=== PATIENT | male | born 1955 ===

== ENCOUNTER 2019-11-15 19:31 | Emergency (ER) | payer BC ==
[2019-11-15] MEDS ORDERED: Aspirin 325 MG Tab PO ONE (19:42)
--- NOTE | 2019-11-15 19:46 | EDM.PDOC ---
ED HPI GENERAL MEDICAL PROBLEM - General Chief Complaint: Chest Pain Stated Complaint: CHEST PAIN Time Seen by Provider: 11/15/19 19:43 Source of Information: Reports: Patient History Limitations: Reports: No Limitations - History of Present Illness INITIAL COMMENTS - FREE TEXT/NARRATIVE: Is a 64-year-old male with a prior history of coronary artery disease status post several stents, diabetes, obesity. Patient presents with a chief complaint of chest pressure. Chest pressure started around 4 PM today. Patient initially thought it was gas and did not think much of it. Patient had associated symptoms of nausea and diaphoresis. Patient states the pain is continued and that it feels similar to when he had prior NH 12 years ago. The pain radiates to the left shoulder. Patient not taking anything for the symptoms. Patient reports continuing to be an every day smoker. Pmhx: Per HPI Pshx: None Family Hx: noncontributory Smoking history? Yes Etoh use? none Drug use? none In addition to that documented in the HPI above, the additional ROS was obtained : Constitutional: Denies fevers or chills Eyes: Denies vision changes ENMT: Denies sore throat CV: Per HPI Resp: Denies SOB GI: Denies vomiting or diarrhea : Denies painful urination MSK: Denies recent trauma Skin: Denies new rashes Neuro: Denies new numbness or tingling or weakness Endocrine: Denies unexpected weight loss Heme: Denies bleeding disorders I have reviewed the triage vital signs Const: Well nourished, well developed, appears stated age Eyes: PERRL, no conjunctival injection HENT: NCAT, Neck supple without meningismus CV: RRR, Warm, well-perfused extremities RESP: CTAB, Unlabored respiratory effort GI: Obesity limits exam. Soft, non-tender, non-distended, no masses MSK: No gross deformities appreciated Skin: Warm, dry. 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 Sensation and motor function of extremities grossly intact. Psych: Appropriate mood and affect Assessment and plan: Patient is a 64-year-old male with chief complaint of chest pain concerning for acute coronary syndrome. Patient's initial EKG demonstrated sinus rhythm without evidence of ST elevation myocardial infarction. Patient did have poor R wave progression which can be indicative of coronary ischemia. Patient's initial troponin was within normal limits. Patient received aspirin and his pain resolved. Patient had no other laboratory abnormalities. After period of observation, the troponin was repeated and demonstrated elevation to 0.7. His EKG demonstrated T wave inversions in the lateral leads I, aVL. Patient still had no evidence of ST elevation NH. Patient was initiated on a heparin drip. Transferred was delayed as the patient did not want to be admitted and wanted to leave the hospital AGAINST MEDICAL ADVICE. After discussion with family members and careful thought, the patient change his mind and agreed to be transferred to another hospital for cardiology evaluation. At this point, there are no ALS who is available to take the patient. While there is a consideration as later tonight there is estimated to be snowfall which can make traveling much more difficult. Therefore, the patient will be transported via air to [place] and he will undergo cardiology evaluation. Patient is hemodynamically stable and has remained so throughout the emergency department stay. Accepting physician at [place] is Dr. Cruz. Patient will continued to be monitored. left shoulder Pain Score (Numeric/FACES): 2 - Related Data Allergies Allergy/AdvReac Type Severity Reaction Status Date / Time No Known Allergies Allergy Verified 11/04/16 09:41 Home Meds: Home Meds Aspirin 1 tab PO DAILY 06/02/15 [History] Dapagliflozin Propanediol [Farxiga] 1 tab PO DAILY 06/02/15 [History] Fish Oil/[place]-3 Fatty Acids [Fish Oil 1,000 MG] 1 each PO BID 06/02/15 [History ] Ramipril [Altace] 1 cap PO DAILY 06/02/15 [History] atenoloL [Tenormin] 1 tab PO DAILY 06/02/15 [History] atorvaSTATin Calcium [Atorvastatin Calcium] 1 tab PO DAILY 06/02/15 [History] glipiZIDE [Glipizide] 2 tab PO BID 06/02/15 [History] metFORMIN [Glucophage] 500 mg PO BID 06/02/15 [History] Ibuprofen 800 mg PO Q6H #10 tablet 06/03/15 [Rx] Sulfamethoxazole/Trimethoprim [Sulfamethoxazole-Tmp Ds Tablet] 1 each PO Q12H # 5 tablet 06/03/15 [Rx] Trejeo Diabetes Injectable 34 units SUBCUT DAILY 11/04/16 [History] Past Medical History HEENT History: Reports: None Cardiovascular History: Reports: High Cholesterol, Hypertension, Other (See Below) Other Cardiovascular History: stent done 2008 Respiratory History: Reports: None Gastrointestinal History: Reports: None Genitourinary History: Reports: None Musculoskeletal History: Reports: None Neurological History: Reports: None Psychiatric History: Reports: None Endocrine/Metabolic History: Reports: Diabetes, Type II Hematologic History: Reports: None Immunologic History: Reports: None Oncologic (Cancer) History: Reports: None Dermatologic History: Reports: None - Infectious Disease History Infectious Disease History: Reports: None - Past Surgical History HEENT Surgical History: Reports: Naso-Sinus Surgery Cardiovascular Surgical History: Reports: Coronary Artery Stent Social & Family History - Family History Family Medical History: Noncontributory - Caffeine Use Caffeine Use: Reports: Coffee ED ROS GENERAL - Review of Systems Review Of Systems: See Below ED EXAM, GENERAL - Physical Exam Exam: See Below Course - Vital Signs Last Recorded V/S: Last Vital Signs Temp 36.4 C 11/15/19 23:23 Pulse 77 11/15/19 23:23 Resp 20 11/15/19 23:23 BP 164/79 H 11/15/19 23:23 Pulse Ox 93 L 11/15/19 23:23 - Orders/Labs/Meds Orders: Active Orders 24 hr Category Date Time Status EKG 12 Lead [EKG Documentation Completion] [RC] STAT Care 11/15/19 22:30 Active EKG 12 Lead [EKG Documentation Completion] [RC] STAT Care 11/15/19 22:31 Active EKG Documentation Completion [RC] STAT Care 11/15/19 19:47 Active Labs: Laboratory Tests 11/15/19 11/15/19 11/15/19 Range/Units 19:35 19:35 19:35 WBC 11.35 H (4.0-11.0) K/uL RBC 5.58 (4.50-5.90) M/uL Hgb 16.8 (13.0-17.0) g/dL Hct 51.1 H (38.0-50.0) % MCV 91.6 (80.0-98.0) fL MCH 30.1 (27.0-32.0) pg MCHC 32.9 (31.0-37.0) g/dL RDW Std Deviation 46.3 (28.0-62.0) fl RDW Coeff of Patricia 14 (11.0-15.0) % Plt Count 250 (150-400) K/uL MPV 9.20 (7.40-12.00) fL Neut % (Auto) 67.3 (48.0-80.0) % Lymph % (Auto) 20.9 (16.0-40.0) % [place] % (Auto) 8.4 (0.0-15.0) % Eos % (Auto) 3.1 (0.0-7.0) % Baso % (Auto) 0.3 (0.0-1.5) % Neut # (Auto) 7.7 H (1.4-5.7) K/uL Lymph # (Auto) 2.4 (0.6-2.4) K/uL [place] # (Auto) 1.0 H (0.0-0.8) K/uL Eos # (Auto) 0.4 (0.0-0.7) K/uL Baso # (Auto) 0.0 (0.0-0.1) K/uL Nucleated RBC % 0.0 /100WBC Nucleated RBCs # 0 K/uL INR 0.91 Sodium 136 (136-148) mmol/L Potassium 4.5 (3.5-5.1) mmol/L Chloride 99 (98-107) mmol/L Carbon Dioxide 27.7 (21.0-32.0) mmol/L BUN 24 H (7.0-18.0) mg/dL Creatinine 1.2 (0.8-1.3) mg/dL Est Cr Clr Drug Dosing 61.75 mL/min Estimated GFR (MDRD) > 60.0 ml/min Glucose 341 H (74-106) mg/dL Calcium 9.5 (8.5-10.1) mg/dL Total Bilirubin 0.2 (0.2-1.0) mg/dL AST 13 L (15-37) IU/L ALT 22 (14-63) IU/L Alkaline Phosphatase 123 H (46-116) U/L Troponin I < 0.050 (0.000-0.056) ng/mL Total Protein 8.3 H (6.4-8.2) g/dL Albumin 3.6 (3.4-5.0) g/dL Globulin 4.7 H (2.6-4.0) g/dL Albumin/Globulin Ratio 0.8 L (0.9-1.6) 11/15/19 Range/Units 21:43 WBC (4.0-11.0) K/uL RBC (4.50-5.90) M/uL Hgb (13.0-17.0) g/dL Hct (38.0-50.0) % MCV (80.0-98.0) fL MCH (27.0-32.0) pg MCHC (31.0-37.0) g/dL RDW Std Deviation (28.0-62.0) fl RDW Coeff of Patricia (11.0-15.0) % Plt Count (150-400) K/uL MPV (7.40-12.00) fL Neut % (Auto) (48.0-80.0) % Lymph % (Auto) (16.0-40.0) % [place] % (Auto) (0.0-15.0) % Eos % (Auto) (0.0-7.0) % Baso % (Auto) (0.0-1.5) % Neut # (Auto) (1.4-5.7) K/uL Lymph # (Auto) (0.6-2.4) K/uL [place] # (Auto) (0.0-0.8) K/uL Eos # (Auto) (0.0-0.7) K/uL Baso # (Auto) (0.0-0.1) K/uL Nucleated RBC % /100WBC Nucleated RBCs # K/uL INR Sodium (136-148) mmol/L Potassium (3.5-5.1) mmol/L Chloride (98-107) mmol/L Carbon Dioxide (21.0-32.0) mmol/L BUN (7.0-18.0) mg/dL Creatinine (0.8-1.3) mg/dL Est Cr Clr Drug Dosing mL/min Estimated GFR (MDRD) ml/min Glucose (74-106) mg/dL Calcium (8.5-10.1) mg/dL Total Bilirubin (0.2-1.0) mg/dL AST (15-37) IU/L ALT (14-63) IU/L Alkaline Phosphatase (46-116) U/L Troponin I 0.696 H* (0.000-0.056) ng/mL Total Protein (6.4-8.2) g/dL Albumin (3.4-5.0) g/dL Globulin (2.6-4.0) g/dL Albumin/Globulin Ratio (0.9-1.6) Meds: Medications Discontinued Medications Generic Name Dose Route Start Last Admin Trade Name Freq PRN Reason Stop Dose Admin Aspirin 325 mg 11/15/19 19:42 11/15/19 20:18 Aspirin PO 11/15/19 19:43 325 mg ONETIME ONE Administration Heparin Sodium (Porcine) 4,000 units 11/15/19 23:08 11/15/19 23:10 Heparin Sodium IVPUSH 11/15/19 23:09 4,000 units ONETIME ONE Administration Protocol Heparin Sodium (Porcine) Confirm 11/15/19 23:07 11/15/19 23:10 Heparin Sodium Administered 11/15/19 23:08 Not Given Dose 5,000 units .ROUTE .STK-MED ONE Heparin Sodium/Sodium Chloride 25,000 unit in 500 mls @ 37.013 mls/hr 23:00 11/15/19 23:04 Heparin-1/2ns 25,000 Units/500 IV 12 units/kg/hr TITRATE JOSÉ MIGUEL 37.013 mls/hr Administration Protocol 12 UNITS/KG/HR Ondansetron HCl 4 mg 11/15/19 23:20 11/15/19 23:23 Zofran IVPUSH 11/15/19 23:21 4 mg ONETIME ONE Administration Departure - Departure Time of Disposition: 23:34 Disposition: DC/Tfer to Acute Hospital 02 Reason for Transfer *Q: Other Clinical Impression: NSTEMI (non-ST elevated myocardial infarction) Referrals: Valentino Lizama MD [Primary Care Provider] - Forms: ED Department Discharge Sepsis Event Note - Evaluation Sepsis Screening Result: No Definite Risk - Focused Exam Vital Signs: Vital Signs Temp Pulse Resp BP Pulse Ox 11/15/19 23:23 36.4 C 77 20 164/79 H 93 L 11/15/19 22:50 78 16 116/54 L 93 L 11/15/19 21:45 73 16 126/61 93 L 11/15/19 19:39 35.9 C L 77 20 137/45 L 95 Date Exam was Performed: 11/15/19 Time Exam was Performed: 23:31 - My Orders Last 24 Hours: My Active Orders 11/15/19 19:47 EKG Documentation Completion [RC] STAT 11/15/19 22:30 EKG 12 Lead [EKG Documentation Completion] [RC] STAT 11/15/19 22:31 EKG 12 Lead [EKG Documentation Completion] [RC] STAT - Assessment/Plan Last 24 Hours: My Active Orders 11/15/19 19:47 EKG Documentation Completion [RC] STAT 11/15/19 22:30 EKG 12 Lead [EKG Documentation Completion] [RC] STAT 11/15/19 22:31 EKG 12 Lead [EKG Documentation Completion] [RC] STAT
--- NOTE | 2019-11-15 20:06 | CR ---
Chest: Semi-upright view of the chest was obtained utilizing portable technique. Comparison: Prior chest x-ray of 06/02/18. Heart size and mediastinum are normal. Lungs are clear with no acute parenchymal change. Bony structures are grossly intact. Impression: 1. Nothing acute is seen on portable chest x-ray. Diagnostic code #1 This report was dictated in [place] Standard Time
[2019-11-15 20:10] LABS: BLOOD UREA NITROGEN,BUN 24 mg/dL (7.0-18.0); CARBON DIOXIDE,CO2 27.7 mmol/L (21.0-32.0); CHLORIDE,CL 99 mmol/L (98-107); GLUCOSE RANDOM 341 mg/dL (74-106); POTASSIUM,K 4.5 mmol/L (3.5-5.1); SODIUM,NA 136 mmol/L (136-148)
[2019-11-15] MEDS ORDERED: Heparin Sod,Pork In 0.45% Nacl 25,000 UNIT/500 ML IV.SOLN IV SCH (23:00)
[2019-11-15] MEDS ORDERED: Heparin Sodium 5,000 Units/ML Vial ONE (23:07)
[2019-11-15] MEDS ORDERED: Heparin Sodium 5,000 Units/ML Vial IVPUSH ONE (23:08)
[2019-11-15] MEDS ORDERED: Ondansetron 4 MG/2 ML SDV IVPUSH ONE (23:20)
[2019-11-15 23:25] VITALS: BP 164/79; PULSE 77
== END 2019-11-16 00:05 ==
LOC: MW.ED 19:31
DX: I21.4 Non-ST elevation (NSTEMI) myocardial infarction (principal); I10 Essential (primary) hypertension; E11.9 Type 2 diabetes mellitus without complications; Z79.82 Long term (current) use of aspirin; Z79.899 Other long term (current) drug therapy
CPT/HCPCS: 36415; 71045; 80053; 84484; 85025; 85610; 93005; 96365; 96375; 99285; A9270; J1644; J2405

== ENCOUNTER 2022-01-08 10:55 | Emergency (ER) | payer BC ==
[2022-01-08] MEDS ORDERED: Sodium Chloride 0.9% 10 ML Syringe FLUSH PRN (11:08)
[2022-01-08] MEDS ORDERED: Sodium Chloride 0.9% 2.5 ML Syringe FLUSH PRN (11:08)
[2022-01-08] MEDS ORDERED: Diltiazem 25 MG/5 ML SDV IVPUSH ONE (11:10)
[2022-01-08] MEDS ORDERED: Diltiazem 100 MG in Sodium Chloride 0.9% 100 ML IV SCH (11:15)
[2022-01-08 11:49] LABS: BLOOD UREA NITROGEN,BUN 15 mg/dL (7.0-18.0); CARBON DIOXIDE,CO2 25.5 mmol/L (21.0-32.0); CHLORIDE,CL 97 mmol/L (98-107); GLUCOSE RANDOM 264 mg/dL (74-106); POTASSIUM,K 4.1 mmol/L (3.5-5.1); SODIUM,NA 133 mmol/L (136-148)
[2022-01-08 13:57] VITALS: BP 131/81; PULSE 111
== END 2022-01-08 13:21 ==
LOC: MW.ED 10:55
DX: I21.4 Non-ST elevation (NSTEMI) myocardial infarction (principal); I48.91 Unspecified atrial fibrillation; I10 Essential (primary) hypertension; E11.9 Type 2 diabetes mellitus without complications; Z79.899 Other long term (current) drug therapy; Z79.82 Long term (current) use of aspirin; Z79.84 Long term (current) use of oral hypoglycemic drugs; Z79.4 Long term (current) use of insulin; Z20.822 Contact with and (suspected) exposure to COVID-19
CPT/HCPCS: 36415; 71045; 80053; 83735; 83880; 84484; 85025; 87635; 93005; 96365; 96366; 96376; 99285; J3490; U0002

== ENCOUNTER 2023-12-12 16:44 | Emergency (ER) | payer BC ==
[2023-12-12 17:27] LABS: BASOPHILS ABSOLUTE AUTO 0.04 K/uL (0.00-0.20); BASOPHILS PERCENT AUTO 0.4 % (0.0-1.0); EOSINOPHILS ABSOLUTE AUTO 0.23 K/uL (0.00-0.45); HEMATOCRIT 41.5 % (42.0-52.0); HEMOGLOBIN 13.8 g/dL (14.0-18.0); IMMATURE GRAN ABSOLUTE AUTO 0.04 K/uL (0.00-0.05); IMMATURE GRAN PERCENT AUTO 0.4 % (0.0-0.4); LYMPHOCYTES ABSOLUTE AUTO 2.03 K/uL (1.00-4.80); LYMPHOCYTES PERCENT AUTO 17.9 % (24.0-44.0); MEAN CORPUSCULAR HEMOGLOBIN 28.6 pg (28.0-32.0); MEAN CORPUSCULAR HGB CONC 33.3 g/dL (32.0-36.0); MEAN CORPUSCULAR VOLUME 85.9 fL (83.0-99.0); MEAN PLATELET VOLUME 9.3 fL (9.4-12.4); MONOCYTES ABSOLUTE AUTO 1.01 K/uL (0.00-0.80); MONOCYTES PERCENT AUTO 8.9 % (0.0-8.0); NEUTROPHILS ABSOLUTE AUTO 7.98 K/uL (1.80-7.70); NEUTROPHILS PERCENT AUTO 70.4 % (41.0-71.0); PLATELET COUNT,PLT 253 K/uL (150-400); RED BLOOD CELL COUNT 4.83 M/uL (4.52-5.90); WHITE BLOOD CELL COUNT,WBC 11.33 K/uL (3.9-11.3)
[2023-12-12] MEDS: Diltiazem IR 60 MG Tab PO ONE (17:43)
[2023-12-12] MEDS: Diltiazem 25 MG/5 ML SDV IVPUSH ONE ×2 (17:43→18:46)
[2023-12-12] MEDS: Sodium Chloride 0.9% 10 ML Syringe FLUSH PRN (17:46)
[2023-12-12] MEDS: Sodium Chloride 0.9% 2.5 ML Syringe FLUSH PRN (17:46)
[2023-12-12 17:55] LABS: INR 1.01 (0.86-1.11); PTT,PARTIAL THROMBOPLSTIN TIME 30.1 SEC (23.9-30.7)
[2023-12-12 18:45] LABS: A/G RATIO 0.9 (0.9-1.6); ALBUMIN 3.4 g/dL (3.4-5.0); BILIRUBIN TOTAL 0.3 mg/dL (0.2-1.0); CALCIUM 10.1 mg/dL (8.5-10.1); CARBON DIOXIDE,CO2 25.7 mmol/L (21.0-32.0); CREATININE 1.1 mg/dL (0.8-1.3); EST CRCL DRUG DOSING (CG) 63.91 mL/min; POTASSIUM,K 4.7 mmol/L (3.5-5.1); PROTEIN TOTAL,TP 7.3 g/dL (6.4-8.2)
[2023-12-12 18:54] LABS: MAGNESIUM 1.6 mg/dL (1.8-2.4); TSH ULTRASENSITIVE 3.29 uIU/mL (0.36-3.74)
[2023-12-12] MEDS: Aspirin 81 MG Tab.Chew PO ONE (19:08)
[2023-12-12] MEDS: Diltiazem 100 MG in Sodium Chloride 0.9% 100 ML IV SCH (19:09)
[2023-12-12] MEDS: Heparin Sodium 5,000 Units/ML Vial IVPUSH ONE (20:31)
[2023-12-12] MEDS: Heparin Sodium/0.45% NaCl 500 ML IV SCH (20:54)
[2023-12-12 23:20] VITALS: BP 140/68; PULSE 102
== END 2023-12-13 01:08 ==
LOC: MW.ED 16:44
DX: I21.4 Non-ST elevation (NSTEMI) myocardial infarction (principal); I48.91 Unspecified atrial fibrillation; I10 Essential (primary) hypertension; E11.9 Type 2 diabetes mellitus without complications; Z79.82 Long term (current) use of aspirin; Z79.84 Long term (current) use of oral hypoglycemic drugs; Z79.4 Long term (current) use of insulin; Z79.899 Other long term (current) drug therapy; Z95.5 Presence of coronary angioplasty implant and graft; Z75.8 Other problems related to medical facilities and other health care
CPT/HCPCS: 36415; 71045; 80053; 83690; 83735; 84443; 84484; 85025; 85610; 85730; 93005; 96365; 96366; 96368; 96376; 99285; A9270; J1644; J3490; 93010